=== PATIENT | female | born 1960 | race Caucasian/White ===

== ENCOUNTER → 2017-04-28 | Outpatient (CLI) | payer OTHER ==
[2017-04-28 20:07] LABS: ALT 33 U/L (9-52); AST 22 U/L (14-36); Alkaline Phosphatase 74 U/L (38-126); Anion Gap 7 mmol/L; Blood Urea Nitrogen 20 mg/dL (7-17); Calcium 9.7 mg/dL (8.4-10.2); Carbon Dioxide 27 mmol/L (22-30); Chloride 105 mmol/L (98-107); Cholesterol 261 mg/dL (<200); Glucose 90 mg/dL (74-99); HDL Cholesterol 83 mg/dL (40-60); Non-African American GFR(MDRD) >60 (>60 ml/min/1.73 sqM); Potassium 4.4 mmol/L (3.5-5.1); Sodium 139 mmol/L (137-145); Total Bilirubin 0.6 mg/dL (0.2-1.3); Total Protein 6.8 g/dL (6.3-8.2)
[2017-04-28 20:14] LABS: Basophils % (A) 1 %; CH 29.4; CHCM 32.7; Eosinophils # (A) 0.1 k/uL (0-0.7); Eosinophils % (A) 3 %; HCT 41.8 % (34.0-46.0); HDW 2.41; HGB 13.2 gm/dL (11.4-16.0); Luc # (Auto) 0.09; Luc % (Auto) 2; Lymphocytes # (A) 1.2 k/uL (1.0-4.8); Lymphocytes % (A) 30 %; MCH 28.5 pg (25.0-35.0); MCHC 31.6 g/dL (31.0-37.0); MCV 90.4 fL (80.0-100.0); Mean Platelet Volume 7.9; Monocytes # (A) 0.2 k/uL (0-1.0); Monocytes % (A) 6 %; Neutrophils # (A) 2.2 k/uL (1.3-7.7); Neutrophils % (A) 58 %; RBC 4.63 m/uL (3.80-5.40); RDW 12.4 % (11.5-15.5); WBC 3.8 k/uL (3.8-10.6); WBC (Perox) 4.14
[2017-04-29 02:06] LABS: Iron Saturation 29.07 (12.00-45.00)
[2017-04-30 09:06] LABS: HLA B27 Comment SEEBELOW
== END ==
LOC: MMGSC 11:42
PROVIDERS: ATTEND Family Medicine
DX: E78.5 Hyperlipidemia, unspecified (principal); R53.83 Other fatigue
CPT/HCPCS: 36415; 80053; 80061; 82306; 82607; 82728; 83540; 83550; 84439; 84443; 85025; 86812

== ENCOUNTER → 2017-11-11 | Outpatient (CLI) | payer OTHER ==
--- NOTE | 2017-11-11 19:49 | CONS ---
CONSULTATION DATE OF SERVICE: 11/11/2017 PRIMARY CARE PHYSICIAN: Dr. Sari Castro CHIEF COMPLAINT: Exhaustion. A 57-year-old female patient, referred to me for excessive fatigue and exhaustion. This has been going on for many years. 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 She works 12-hour shifts. She has been chronically fatigued and recently her fatigue has gotten worse. She had an investigation and a preliminary workup which was done through her primary care physician came back negative, as the patient was not found to have any significant metabolic disorder contributing to this. She has also seen a homeopathic physician and she has not been found to have any abnormalities. She goes to bed around 10:30 p.m., wakes up at 4:00 a.m. in the morning. She is quite stressed from work and she thinks that she has been sleeping only 4-5 hours per night. She denies having snoring. She denies having stop breathing at night. No report of insomnia. No choking or gasping sensation at nighttime. No nocturia. No grinding of the teeth. No sleepwalking. No dry mouth. No anxiety or panic attacks. No palpitations. No heartburn. No restlessness in lower extremities. No sleepwalking or sleep talking. She has hypertension and she was given a combination of lisinopril/hydrochlorothiazide. Recent she ended up quitting the medication, thinking that the medications of was increasing and adding to her exhaustion. No other medications for now. She has not taken her blood pressure medication for 6 weeks and most her recent blood pressure is 165/82. No history of anemia. No history of hypothyroidism. No history of any rheumatologic disease or disorder. PAST MEDICAL HISTORY: Hypertension. SURGICAL HISTORY: Tonsillectomy, lumpectomy, benign and hysterectomy. DRUG ALLERGIES: SULFA. MEDICATIONS: None for now. SOCIAL HISTORY: The patient is a nonsmoker. No history of alcohol. No history of IV drugs. FAMILY HISTORY: Negative for sleep apnea. REVIEW OF SYSTEMS: A 12-point review of system was done. Positive findings are mentioned above in the history of present illness. In addition, the patient denies having any motor vehicle accidents related to drowsiness or sleepiness. She does not fall asleep while driving her car. She has no sleep paralysis, no hallucinations, no cataplexy. She prefers to sleep on her side. She does not take any naps during the day. She does not have any vivid dreams. No hallucinations. No nocturia. PHYSICAL EXAMINATION: Her current BP is 116/82, pulse 97, respirations 16, temperature 98.5, saturation 99% on room air. Weight is 160, height is 5 feet 6 inches, neck size 15 inches, BMI is 25.8. Winthrop score is 11. GENERAL APPEARANCE: Calm, comfortable. Head is atraumatic, normocephalic. Neck is supple. Mallampati class IV. There is no goiter or neck mass. LUNGS: Clear to auscultation. Heart sounds are regular rate and rhythm. Normal S1, S2. No S3, S4. No murmurs. Abdomen is soft, nontender. No organomegaly. Extremities reveal no edema. No cyanosis or clubbing. IMPRESSION: 1. Excessive exhaustion with limited sleepiness. The patient has undergone a home sleep study more than 5 years ago and she was told that this study was negative and she does not have any sleep breathing disorder. 2. Insufficient sleep syndrome, as the patient is averaging less than 6 hours of sleep on a 24-hour period. This could be a significant contributing factor for her chronic exhaustion and sleepiness. 3. Adequate sleep hygiene measures. 4. Hypertension. PLAN: I doubt that this patient has a typical sleep breathing disorder. The patient has a BMI of 25 and she does not have snoring or witnessed apneas and furthermore, a home sleep study that was done earlier through another facility has shown no significant sleep apnea. I do, however, think that she has insufficient sleep syndrome. The number of hours that she is sleeping is not enough and she needs to extend her sleep hours to an average of 7-8 hours of sleep per night and this should make her much more rested and refreshed during the day. She has tried Adderall in the past with limited success. I will not think there is need for any stimulant medication for now, especially as the patient is not falling asleep during day-to-day activity at work or while driving. She needs to extend her sleep hours. I will be glad to do a full polysomnogram at a later stage if she continues to be symptomatic. I suggest doing a polysomnogram; at this point, however, the patient opted to wait. The polysomnogram should be able to help us figure out if there is any sleep pathology contributing to her chronic exhaustion and fatigue and this is something that may need to do at a later stage. The patient was also referred to Neurology by her primary care physician. Further workup is in progress. Will continue to follow and see this patient at a later stage, especially if she continues to have the same symptoms. MMODL / IJN: [id number] /
== END | disposition home or self-care (01) ==
LOC: SLEEP 13:12
PROVIDERS: ATTEND Internal Medicine Critical Care Medicine
DX: R53.83 Other fatigue (principal); G47.8 Other sleep disorders; I10 Essential (primary) hypertension; Z88.2 Allergy status to sulfonamides
CPT/HCPCS: 99211

== ENCOUNTER → 2018-07-13 | Outpatient (CLI) | payer OTHER ==
[2018-07-13 09:01] LABS: T4, Free (Free Thyroxine) 1.57 ng/dL (0.78-2.19)
[2018-07-13 17:18] LABS: Iron Saturation 20.78 (12.00-45.00)
[2018-07-13 17:28] LABS: Vitamin D 25 Hydroxy 21.2 ng/mL (30.0-100.0)
--- NOTE | 2018-07-14 12:03 | MM ---
Reason for exam: screening (asymptomatic). Last mammogram was performed 2 years and 3 months ago. History: Benign excisional biopsy of the right breast, 1997. Taking estrogen for 2 years. Physical Findings: A clinical breast exam by your physician is recommended on an annual basis and results should be correlated with mammographic findings. MG Screening Mammo w CAD Bilateral CC and MLO view(s) were taken. Prior study comparison: April 09, 2016, bilateral MG screening mammo w CAD. November 02, 2014, bilateral MG screening mammo w CAD. The breast tissue is heterogeneously dense. This may lower the sensitivity of mammography. No significant changes when compared with prior studies. ASSESSMENT: Benign, BI-RAD 2 RECOMMENDATION: Routine screening mammogram of both breasts in 1 year.
== END | disposition home or self-care (01) ==
LOC: RADMAMWWP 07:07
PROVIDERS: ATTEND Family Medicine
DX: Z12.31 Encounter for screening mammogram for malignant neoplasm of breast (principal); I10 Essential (primary) hypertension; E78.00 Pure hypercholesterolemia, unspecified; R53.83 Other fatigue
CPT/HCPCS: 77067; 80061; 82306; 82533; 82607; 83540; 83550; 84439; 84443

== ENCOUNTER → 2019-06-20 | Outpatient (CLI) | payer OTHER ==
--- NOTE | 2019-06-20 14:04 | EST ---
EXERCISE STRESS AGE: 68 SEX: F HT: 5'6" WT: 130 PROTOCOL: Mehran Stress Test STAGE: 3 DURATION OF EXERCISE: 6:36 HEART RATE REST: 106 BLOOD PRESSURE REST: 138/85 MAXIMUM HEART RATE ACHIEVED: 164 MAXIMUM BLOOD PRESSURE: 186/70 85% MPHR: 138 100% MPHR: 162 METS: 7.9 INDICATIONS: Vertigo CLINICAL INFORMATION: Exercise stress test was performed. Patient was exercised for a total period of 6 minutes and 30 seconds. Peak heart rate of 164 was achieved. Maximum blood pressure of 186/70 mmHg was noted. Resting EKG shows normal sinus rhythm with normal ME interval and QRS duration and normal ST-T waves. During exercise J-point depression with upsloping ST segments are noted. Patient did not complain of any chest pain during the test. FINAL IMPRESSION: 1. This exercise test is not suggestive of ischemia. 2. Patient's exercise tolerance is average. 3. No dysrhythmias are noted. MMODL / IJN: [id number] /
== END | disposition home or self-care (01) ==
LOC: RADNMMAIN 08:39
PROVIDERS: ATTEND Family Medicine
DX: I10 Essential (primary) hypertension (principal); R55 Syncope and collapse
CPT/HCPCS: 93017

== ENCOUNTER → 2020-02-29 | Outpatient (CLI) | payer OTHER ==
--- NOTE | 2020-02-29 07:48 | US ---
EXAMINATION TYPE: US kidneys/renal and bladder DATE OF EXAM: 02/29/2020 COMPARISON: NONE CLINICAL HISTORY: R94.4 Abnormal results of kidney function studies. Elevated creatine EXAM MEASUREMENTS: Right Kidney: 8.3 x 3.8 x 4.4 cm Left Kidney: 9.7 x 4.9 x 5.1 cm Right Kidney: No hydronephrosis or masses seen Left Kidney: No hydronephrosis or masses seen Bladder: wnl Bilateral Jets seen: Yes There is no evidence for hydronephrosis at this point in time. No nephrolithiasis is seen. No krista s are identified. The urinary bladder is anechoic. Bilateral ureteral jets are seen. IMPRESSION: No distinct abnormality is appreciated at this time.
== END | disposition home or self-care (01) ==
LOC: RADUSWWP 06:58
PROVIDERS: ATTEND Family Medicine
DX: R94.4 Abnormal results of kidney function studies (principal)
CPT/HCPCS: 76770

== ENCOUNTER → 2021-02-15 | Outpatient (CLI) | payer OTHER ==
--- NOTE | 2021-02-18 11:14 | MM ---
Reason for exam: screening (asymptomatic). Last mammogram was performed 2 years and 7 months ago. History: Benign excisional biopsy of the right breast, 1997. Took estrogen for 2 years. Physical Findings: A clinical breast exam by your physician is recommended on an annual basis and results should be correlated with mammographic findings. MG Screening Mammo w CAD Bilateral CC and MLO view(s) were taken. Prior study comparison: July 13, 2018, bilateral MG screening mammo w CAD. April 09, 2016, bilateral MG screening mammo w CAD. The breast tissue is heterogeneously dense. This may lower the sensitivity of mammography. There is no discrete abnormality. ASSESSMENT: Negative, BI-RAD 1 RECOMMENDATION: Routine screening mammogram of both breasts in 1 year.
== END | disposition home or self-care (01) ==
LOC: RADMAMWWP 08:06
PROVIDERS: ATTEND Family Medicine
DX: Z12.31 Encounter for screening mammogram for malignant neoplasm of breast (principal)
CPT/HCPCS: 77067

== ENCOUNTER → 2022-04-15 | Outpatient (CLI) | payer OTHER ==
--- NOTE | 2022-04-16 07:52 | MM ---
Reason for Exam: Screening (asymptomatic). Last mammogram was performed 1 year(s) and 2 month(s) ago. Patient History: Menarche at age 14. First Full-Term at age 19. Right ovary removed at age 43. Hysterectomy at age 43. Postmenopausal. Patient used Estrogen for 2 years. 1997, Benign Excisional Biopsy on the right side. Risk Values: Rosibel 5 year model risk: 1.2%. NCI Lifetime model risk: 5.6%. Prior Study Comparison: 04/09/2016 Bilateral Screening Mammogram, [facility]. 07/13/2018 Bilateral Screening Mammogram, [facility]. 02/15/2021 Bilateral Screening Mammogram, [facility]. Tissue Density: The breast tissue is heterogeneously dense. This may lower the sensitivity of mammography. Findings: Analyzed By CAD. There is no suspicious group of microcalcifications or new distortion in either breast. Overall Assessment: Negative, BI-RAD 1 Management: Screening Mammogram of both breasts in 1 year. Some advise bilateral breast ultrasound surveillance in patients with background dense tissue. A clinical breast exam by your physician is recommended on an annual basis and results should be correlated with mammographic findings. Electronically signed and approved by: Babak Sanford M.D.
== END | disposition home or self-care (01) ==
LOC: RADMAMWWP 08:48
PROVIDERS: ATTEND Family Medicine
DX: Z12.31 Encounter for screening mammogram for malignant neoplasm of breast (principal); Z78.0 Asymptomatic menopausal state; Z90.721 Acquired absence of ovaries, unilateral
CPT/HCPCS: 77063; 77067

== ENCOUNTER → 2023-07-02 | Outpatient (CLI) | payer OTHER ==
--- NOTE | 2023-07-02 20:24 | MM ---
Reason for Exam: Screening (asymptomatic). Last mammogram was performed 1 year(s) and 2 month(s) ago. Patient History: Menarche at age 14. First Full-Term at age 19. Right ovary removed at age 43. Hysterectomy at age 43. Postmenopausal. Patient used Estrogen for 2 years. 1997, Benign Excisional Biopsy on the right side. Risk Values: Rosibel 5 year model risk: 1.2%. NCI Lifetime model risk: 5.4%. Prior Study Comparison: 07/13/2018 Bilateral Screening Mammogram, [facility]. 02/15/2021 Bilateral Screening Mammogram, [facility]. 04/15/2022 Bilateral MG 3D screening mammo w/cad, [facility]. Tissue Density: The breast tissue is heterogeneously dense. This may lower the sensitivity of mammography. Findings: Analyzed By CAD. There is no suspicious group of microcalcifications or new suspicious mass in either breast. Overall Assessment: Negative, BI-RAD 1 Management: Screening Mammogram of both breasts in 1 year. . Patient should continue monthly self-breast exams. A clinical breast exam by your physician is recommended on an annual basis. This exam should not preclude additional follow-up of suspicious palpable abnormalities. Note on Rosibel scores and lifetime risk: 1. A Rosibel score greater than 3% is considered moderate risk. If this is the case, consider specialist referral to assess eligibility for a risk reducing agent. 2. If overall lifetime risk for the development of breast cancer is 20% or higher, the patient may qualify for future screening with alternating mammogram and breast MRI. Electronically signed and approved by: Errol Casey M.D. Radiologist
== END | disposition home or self-care (01) ==
LOC: RADMAMWWP 07:30
PROVIDERS: ATTEND Family Medicine
DX: Z12.31 Encounter for screening mammogram for malignant neoplasm of breast (principal); Z78.0 Asymptomatic menopausal state
CPT/HCPCS: 77063; 77067

== ENCOUNTER → 2024-12-12 | Outpatient (CLI) | payer OTHER ==
--- NOTE | 2024-12-12 07:48 | MM ---
Reason for Exam: Screening (asymptomatic). Last mammogram was performed 1 year(s) and 6 month(s) ago. Patient History: Menarche at age 14. First Full-Term at age 19. Right ovary removed at age 43. Hysterectomy at age 43. Postmenopausal. Patient used Estrogen for 2 years. 1997, Benign Excisional Biopsy on the right side. Risk Values: Rosibel 5 year model risk: 1.3%. NCI Lifetime model risk: 5.1%. Prior Study Comparison: 02/15/2021 Bilateral Screening Mammogram, [facility]. 04/15/2022 Bilateral MG 3D screening mammo w/cad, [facility]. 07/02/2023 Bilateral MG 3D screening mammo w/cad, [facility]. Tissue Density: The breasts are heterogeneously dense, which may obscure small masses. Findings: Analyzed By CAD. Benign-appearing bilateral axillary lymph nodes are redemonstrated. There is no suspicious group of microcalcifications or new suspicious mass in either breast. Overall Assessment: Negative, BI-RAD 1 Management: Screening Mammogram of both breasts in 1 year. . Patient should continue monthly self-breast exams. A clinical breast exam by your physician is recommended on an annual basis. This exam should not preclude additional follow-up of suspicious palpable abnormalities. Note on Rosibel scores and lifetime risk: 1. A Rosibel score greater than 3% is considered moderate risk. If this is the case, consider specialist referral to assess eligibility for a risk reducing agent. 2. If overall lifetime risk for the development of breast cancer is 20% or higher, the patient may qualify for future screening with alternating mammogram and breast MRI. [facility], , 12/12/2024 7:45 AM. Electronically signed and approved by: Babak Sanford M.D.
== END | disposition home or self-care (01) ==
LOC: RADMAMWWP 06:44
PROVIDERS: ATTEND Family Medicine
DX: Z12.31 Encounter for screening mammogram for malignant neoplasm of breast (principal); R92.333 Mammographic heterogeneous density, bilateral breasts; Z78.0 Asymptomatic menopausal state
CPT/HCPCS: 77063; 77067